=== PATIENT | male | born 1945 | race Caucasian/White ===

== ENCOUNTER 2019-04-27 06:03 | Day surgery (SDC) | payer OTHER, BC ==
[2019-04-26 12:08] VITALS: BMI 36.6
[2019-04-27] MEDS ORDERED: LIDOCAINE 1%-EPI 1:100,000 30 ML MDV IJ ONE (07:12)
[2019-04-27] MEDS ORDERED: BACITRACIN/POLYMYXIN OPH OINT 3.5 GM TUBE ONE (07:13)
[2019-04-27] MEDS ORDERED: TETRACAINE 0.5% OPHTH SOLN 2 ML BOTTLE ONE (07:14)
[2019-04-27] MEDS ORDERED: BACITRACIN 3.5 GM OPTHALMIC OINT TUBE ONE (07:14)
[2019-04-27] MEDS ORDERED: PROPOFOL 20 ML ONE (07:29)
[2019-04-27] MEDS ORDERED: SUCCINYLCHOLINE CHLORIDE 200 MG/10 ML SYRINGE ONE (07:29)
[2019-04-27] MEDS ORDERED: MIDAZOLAM HCL 2 MG/2 ML SINGLE DOSE VIAL ONE (07:30)
[2019-04-27] MEDS ORDERED: POVIDONE-IODINE 5% OPHTHALMIC PREP 30 ML SOLUTION ONE (07:32)
[2019-04-27] MEDS ORDERED: POVIDONE-IODINE 5% OPHTHALMIC PREP 30 ML SOLUTION OD ONE (07:39)
[2019-04-27] MEDS ORDERED: TETRACAINE 0.5% OPHTH SOLN 2 ML BOTTLE OD ONE (07:39)
[2019-04-27] MEDS ORDERED: BACITRACIN 15 GM TUBE TOPICAL OINTMENT TP ONE (08:21)
[2019-04-27 11:36] VITALS: BP 97/53; PULSE 58; TEMP 97.9
--- NOTE | 2019-04-28 15:58 | PATH ---
Surgical Pathology Report Patient Name: CHELSIE THOMPSON [facility]. Rec. #: [id number] /Age/Gender: 1945 (Age: 74) / M Account: [id number] Location: [facility] SURGICAL Taken: 04/27/2019 Received: 04/27/2019 Reported: 04/28/2019 Physicians: Armaan Licona M.D. Specimen(s) Received RIGHT LOWER LID Clinical History Right entropion Final Diagnosis RIGHT LOWER LID FULL THICKNESS, EXCISION: SQUAMOUS AND CONJUNCTIVA JUNCTIONAL MUCOSA SHOWING SUBMUCOSAL CHRONIC INFLAMMATION, STROMAL FIBROSIS, AND ELASTOSIS. Electronically Signed Javid Perla M.D. Gross Description Received in formalin labeled "right lower lid full thickness," is a 0.6 x 0.6 cm goyal, elliptical, unoriented portion of skin excised to a depth of 0.5 cm. The base is inked green and the specimen is bisected. The specimen is submitted in toto in one cassette. /04/27/2019 [facility]04/27/2019
--- NOTE | 2019-04-29 00:32 | OP ---
DATE OF OPERATION: 04/27/2019 PREOPERATIVE DIAGNOSIS: Chronic entropion, right lower lid with corneal involvement. OPERATION PERFORMED: Full-thickness repair of entropion, right lower lid. SURGEON: Ellen Rosa MD ANESTHESIOLOGIST: Erik Becker MD DESCRIPTION OF OPERATION: After the patient was positively identified by Dr. Rosa, brought into the operating room, and placed in the supine position. Intravenous sedation was accomplished. The operating microscope was placed in position over the right eye. Topical anesthesia and local infiltration with 1% Xylocaine with epinephrine of the right lower lid was completed. The area of the right lower lid to be excised was measured, and utilizing cut cautery technology, a wedge, full-thickness resection of the right lower lid was completed. The cut edges of the tarsal plate were closed and approximated utilizing 5-0 chromic sutures. The orbicularis was plicated. The skin incision was closed with interrupted 6-0 Vicryl sutures with the knots buried beneath the surface. Antibiotic ointment, Telfa, and were applied to the surgical wound. Ice compresses were applied, and the patient was given instructions after leaving the operating room in satisfactory condition. The patient is instructed to call for the time of the appointment upon arriving home. ELLEN ROSA M.D. [id number]
== END 2019-04-27 09:40 | disposition home or self-care (01) ==
LOC: JASU-SURG 06:03
PROVIDERS: ATTEND Ophthalmology
PROC: 08BQ0ZZ Excision of Right Lower Eyelid, Open Approach (ICD-10-PCS; principal; 2019-04-27 07:30)
DX: H02.002 Unspecified entropion of right lower eyelid (principal)
CPT/HCPCS: 88304-TC